=== PATIENT | male | born 1990 | race African-American/Black ===

== ENCOUNTER 2016-09-15 10:46 | Emergency (ER) | payer MEDICAID ==
[~2016-09-15] VITALS: Ht 182.9 cm; Wt 72.6 kg
[2016-09-15 10:50] VITALS: BP 123/73
== END 2016-09-15 14:05 | disposition left against medical advice (07) ==
LOC: ER 10:49
DX: J02.9 Acute pharyngitis, unspecified (principal); Z53.21 Procedure and treatment not carried out due to patient leaving prior to being seen by health care provider

== ENCOUNTER 2016-09-21 03:31 | Emergency (ER) | payer MEDICAID ==
[~2016-09-21] VITALS: Ht 182.9 cm; Wt 72.6 kg
[2016-09-21 08:10] VITALS: BP 120/68
[2016-09-21] MEDS ORDERED: methylPREDNISolone SOD SUCC 125 MG/2 ML VL IM ONE (09:00)
[2016-09-21] MEDS ORDERED: cefTRIAXone SOD 1,000 MG VL IM ONE (09:00)
== END 2016-09-21 10:18 | disposition home or self-care (01) ==
LOC: ER 03:36
DX: J20.9 Acute bronchitis, unspecified (principal); J03.90 Acute tonsillitis, unspecified; F17.210 Nicotine dependence, cigarettes, uncomplicated
CPT/HCPCS: 96372; 99284; J0696; J2930

== ENCOUNTER 2016-10-09 01:46 | Emergency (ER) | payer MEDICAID ==
[~2016-10-09] VITALS: Ht 185.4 cm; Wt 74.4 kg
[2016-10-09 03:20] VITALS: BP 135/76
== END 2016-10-09 03:22 | disposition home or self-care (01) ==
LOC: ER 01:49
DX: R05 Cough (principal); F17.210 Nicotine dependence, cigarettes, uncomplicated

== ENCOUNTER 2017-02-12 01:45 | Emergency (ER) | payer MEDICAID ==
[~2017-02-12] VITALS: Ht 182.9 cm; Wt 77.1 kg
[2017-02-12 01:50] VITALS: BP 137/93
== END 2017-02-12 02:33 | disposition home or self-care (01) ==
LOC: ER 01:45
DX: J20.9 Acute bronchitis, unspecified (principal); F17.210 Nicotine dependence, cigarettes, uncomplicated

== ENCOUNTER 2017-10-27 01:13 | Emergency (ER) | payer MEDICAID ==
[~2017-10-27] VITALS: Ht 180.3 cm; Wt 79.4 kg
[2017-10-27 02:04] VITALS: BP 139/91
== END 2017-10-27 03:00 | disposition left against medical advice (07) ==
LOC: ER 01:13
DX: J02.9 Acute pharyngitis, unspecified (principal); Z53.21 Procedure and treatment not carried out due to patient leaving prior to being seen by health care provider

== ENCOUNTER 2017-11-26 01:17 | Emergency (ER) | payer MEDICAID ==
[~2017-11-26] VITALS: Ht 180.3 cm; Wt 73.0 kg
[2017-11-26 01:30] VITALS: BP 146/96
[2017-11-26] MEDS ORDERED: HYDROcodone-ACET 10/325MG TAB PO ONE (04:00)
== END 2017-11-26 05:27 | disposition home or self-care (01) ==
LOC: ER 01:20
DX: S50.01XA Contusion of right elbow, initial encounter (principal); F17.210 Nicotine dependence, cigarettes, uncomplicated; Y08.89XA Assault by other specified means, initial encounter; Y93.89 Activity, other specified; Y99.8 Other external cause status; Y92.89 Other specified places as the place of occurrence of the external cause
CPT/HCPCS: 73080

== ENCOUNTER 2018-05-05 01:57 | Emergency (ER) | payer MEDICAID ==
[~2018-05-05] VITALS: Ht 185.4 cm; Wt 77.1 kg
[2018-05-05 02:00] VITALS: BP 119/55
[2018-05-05 07:25] LABS: Amphetamine Screen, Urine NEGATIVE (NEGATIVE); Barbiturate Scree,Urine NEGATIVE (NEGATIVE); Benzodiazephine Screen, Urine NEGATIVE (NEGATIVE); Cannabinoid Screen, Urine NEGATIVE (NEGATIVE); Cocaine Screen, Urine NEGATIVE (NEGATIVE); Opiate Scree,Urine NEGATIVE (NEGATIVE); Phencyclidine Screen, Urine NEGATIVE (NEGATIVE)
== END 2018-05-05 07:34 | disposition home or self-care (01) ==
LOC: ER 01:57
DX: J20.9 Acute bronchitis, unspecified (principal); F17.210 Nicotine dependence, cigarettes, uncomplicated
CPT/HCPCS: 71046; 80307

== ENCOUNTER 2019-01-05 03:37 | Emergency (ER) | payer MEDICAID ==
[~2019-01-05] VITALS: Ht 180.3 cm; Wt 72.6 kg
[2019-01-05 03:47] VITALS: BP 129/60
== END 2019-01-05 07:04 | disposition home or self-care (01) ==
LOC: ER 03:39
DX: R22.0 Localized swelling, mass and lump, head (principal); F17.210 Nicotine dependence, cigarettes, uncomplicated

== ENCOUNTER 2019-01-07 00:50 | Emergency (ER) | payer MEDICAID ==
[~2019-01-07] VITALS: Ht 180.3 cm; Wt 73.5 kg
[2019-01-07 01:10] VITALS: BP 143/61
== END 2019-01-07 01:47 | disposition left against medical advice (07) ==
LOC: ER 00:55
DX: K13.0 Diseases of lips (principal); Z53.21 Procedure and treatment not carried out due to patient leaving prior to being seen by health care provider

== ENCOUNTER 2019-04-10 23:12 | Emergency (ER) | payer MEDICAID ==
[~2019-04-10] VITALS: Ht 182.9 cm; Wt 72.6 kg
[2019-04-11 06:05] VITALS: BP 109/45
[2019-04-11] MEDS ORDERED: SODIUM CHLORIDE 0.9% 1,000 ML IVB ONE (06:47)
== END 2019-04-11 07:25 | disposition left against medical advice (07) ==
LOC: ER 23:12
DX: R53.1 Weakness (principal); K13.0 Diseases of lips; F12.10 Cannabis abuse, uncomplicated
CPT/HCPCS: 94761; 99283; J7030

== ENCOUNTER 2019-04-29 12:23 | Emergency (ER) | payer MEDICAID ==
[~2019-04-29] VITALS: Ht 185.4 cm; Wt 72.6 kg
[2019-04-29 12:30] VITALS: BP 115/65
== END 2019-04-29 17:06 | disposition left against medical advice (07) ==
LOC: ER 12:23
DX: K13.79 Other lesions of oral mucosa (principal); Z53.21 Procedure and treatment not carried out due to patient leaving prior to being seen by health care provider

== ENCOUNTER 2019-09-04 03:48 | Emergency (ER) | payer SELFPAY ==
[~2019-09-04] VITALS: Ht 185.4 cm; Wt 77.1 kg
[2019-09-04 04:35] VITALS: BP 114/71
== END 2019-09-04 06:34 | disposition left against medical advice (07) ==
LOC: ER 03:53
DX: J02.9 Acute pharyngitis, unspecified (principal); Z53.21 Procedure and treatment not carried out due to patient leaving prior to being seen by health care provider